=== PATIENT | male | born 1955 | race Caucasian/White ===

== ENCOUNTER 2024-08-05 23:36 | Emergency (ER) | payer BC, SELFPAY ==
[2024-08-05 23:39] VITALS: BP 158/90; PULSE 91; RESP 20; TEMP 36.7; O2SAT 100
== END 2024-08-05 23:59 | disposition left against medical advice (07) ==
PROVIDERS: PCP Family Medicine
DX: R22.0 Localized swelling, mass and lump, head (principal)
CPT/HCPCS: 99199